=== PATIENT | male | born 1990 | race Two or more races ===

== ENCOUNTER 2018-11-23 18:59 | Emergency (ER) | payer SELFPAY ==
[~2018-11-23] VITALS: Ht 185.4 cm; Wt 72.6 kg
[2018-11-23 19:01] VITALS: BP 124/88
== END 2018-11-24 00:51 | disposition left against medical advice (07) ==
LOC: ER 18:59
DX: S00.81XA Abrasion of other part of head, initial encounter (principal); Z53.21 Procedure and treatment not carried out due to patient leaving prior to being seen by health care provider; Y08.89XA Assault by other specified means, initial encounter; Y93.89 Activity, other specified; Y99.8 Other external cause status; Y92.89 Other specified places as the place of occurrence of the external cause